=== PATIENT | female | born 1960 | race Caucasian/White ===

== ENCOUNTER 2022-01-22 00:30 | Inpatient (IN) ==
[2022-01-22] MEDS ORDERED: Lactated Ringers 1000 ml BAG 1,000 ML IV ONE ×3 (00:59→06:00)
[2022-01-22] MEDS ORDERED: Ondansetron 4 mg VIAL 2 MG/ML 2 ml VIAL IV ONE ×2 (00:59→02:11)
[2022-01-22] MEDS ORDERED: Famotidine IV 10 MG/ML 2 ml VIAL (20 mg) IV SLOW PU ONE (00:59)
[2022-01-22 01:47] LABS: Hematocrit 26 % (35-47); Hemoglobin 8.9 g/dL (12.0-16.0); Mean Corpuscular HGB Conc 35 g/dL (31-36); Mean Corpuscular Hemoglobin 36 pg (27-31); Mean Corpuscular Volume 104 fL (80-97); Red Blood Count 2.47 10^6 /uL (3.70-4.87); Red Cell Distribution Width 14 % (10-15); White Blood Count 9.4 10^3/uL (3.5-10.8)
[2022-01-22 02:01] LABS: ALT 27 U/L (7-52); AST 21 U/L (13-39); Albumin/Globulin Ratio 3.1 (1-3); Alkaline Phosphatase 36 U/L (35-149); Anion Gap 7 mmol/L (2-11); Blood Urea Nitrogen 20 mg/dL (6-24); CO2 Carbon Dioxide 25 mmol/L (22-32); Calcium 8.3 mg/dL (8.6-10.3); Chloride 107 mmol/L (101-111); Globulin 1.3 g/dL (2-4); Glucose 123 mg/dL (70-100); Lipase 24 U/L (11.0-82.0); Magnesium 1.8 mg/dL (1.9-2.7); Potassium 3.9 mmol/L (3.5-5.0); Sodium 139 mmol/L (135-145); Total Protein 5.3 g/dL (6.4-8.9); eGFR CKD-EPI 100.8 (>60)
[2022-01-22 02:42] LABS: Anisocytosis 1+; Macrocytosis 1+; Polychromasia 1+
[2022-01-22 02:43] LABS: ABS Lymphocytes 0.1 10^3/ul (1.0-4.8); ABS Monocytes 0.1 10^3/ul (0-0.8); ABS Neutrophils 9.2 10^3/ul (1.5-7.7); Eosinophil % 0.3 %; Lymphocyte % 0.5 %; Mean Platelet Volume 9.3 fL (7.4-10.4); Nucleated Red Blood Cells % 0.1; Platelet Count 58 10^3/uL (150-450)
[2022-01-22 02:59] LABS: Activated Partial Thrombo Time 24.6 seconds (26.0-38.0)
[2022-01-22] MEDS ORDERED: Iohexol 300 (CONTRAST) 10 ML SDV IV ONE (03:06)
[2022-01-22] MEDS ORDERED: Cefepime 1 GM in Dextrose 1 GM/50 ML BAG IV ONE (03:33)
[2022-01-22] MEDS ORDERED: metroNIDAZOLE IV 500 MG/100ML 500 MG/100 ML BAG IVPB ONE (03:34)
[2022-01-22] MEDS ORDERED: Metoclopramide 5 MG/ML VIAL (10 mg) IV SLOW PU ONE (04:11)
[2022-01-22 07:32] LABS: INR 0.96 (0.86-1.15)
[2022-01-22] MEDS ORDERED: Magnesium Sulfate IV 1GM/100ML 1 GM/100 ML BAG IV ONE (08:23)
[2022-01-22] MEDS ORDERED: Lactated Ringers 1000 ml BAG 1,000 ML IV SCH (09:00)
[2022-01-22 09:50] LABS: TSH Ultra Thyroid Stim Horm 1.22 mcIU/mL (0.34-5.60); Total Iron Binding Capacity 223 mcg/dL (250-450); Transferrin 159 mg/dL (203-362)
[2022-01-22 10:01] LABS: Folate 18.13 ng/mL (5.90-24.80)
[2022-01-22 10:02] LABS: Vitamin B12 547 pg/mL (180-914)
[2022-01-22] MEDS: Lactated Ringers 1000 ml BAG 1,000 ML IV SCH (11:24)
[2022-01-22] MEDS ORDERED: Albuterol HFA INHALER 8 gm MDI INH PRN (11:29)
[2022-01-22 12:43] LABS: LDH 141 U/L (140-271)
[2022-01-22 12:44] LABS: Iron < 20 ug/dL (50-212)
[2022-01-22] MEDS ORDERED: Azithromycin 500 mg/250 ml NS 500 MG/250 ML BAG IVPB SCH (13:00)
[2022-01-22] MEDS: metroNIDAZOLE IV 500 MG/100ML 500 MG/100 ML BAG IVPB SCH ×2 (14:59→19:59)
[2022-01-22 15:49] LABS: Hematocrit for Retic CNT 22 % (35-47); RBC Retic Count 2.09 10^6/uL (3.70-4.87)
[2022-01-22 15:53] LABS: Corrected Retic Count 1.2 % (0.5-1.5); Immature Retic Fraction 0.62
[2022-01-22] MEDS: Mometasone/Formoter 200/5 MDI INH SCH (19:17)
[2022-01-23] MEDS: Lactated Ringers 1000 ml BAG 1,000 ML IV SCH ×2 (01:10→05:44)
[2022-01-23 07:17] LABS: Hematocrit 18 % (35-47); Hemoglobin 6.3 g/dL (12.0-16.0); Mean Corpuscular HGB Conc 35 g/dL (31-36); Mean Corpuscular Hemoglobin 36 pg (27-31); Mean Corpuscular Volume 103 fL (80-97); Mean Platelet Volume 8.4 fL (7.4-10.4); Platelet Count 18 10^3/uL (150-450); Red Blood Count 1.75 10^6 /uL (3.70-4.87); Red Cell Distribution Width 14 % (10-15); White Blood Count 2.3 10^3/uL (3.5-10.8)
[2022-01-23 07:32] LABS: Calcium 7.4 mg/dL (8.6-10.3); Potassium 3.5 mmol/L (3.5-5.0); eGFR CKD-EPI 98.9 (>60)
[2022-01-23] MEDS: Mometasone/Formoter 200/5 MDI INH SCH ×2 (07:36→19:15)
[2022-01-23 07:39] LABS: ABS Monocytes 0.2 10^3/ul (0-0.8); ABS Neutrophils 2.1 10^3/ul (1.5-7.7); Eosinophil % 0.5 %; Lymphocyte % 1.2 %
[2022-01-23] MEDS: metroNIDAZOLE IV 500 MG/100ML 500 MG/100 ML BAG IVPB SCH ×3 (08:30→21:42)
[2022-01-23 09:00] LABS: Platelet Count 19 10^3/uL (150-450)
[2022-01-23 09:01] LABS: Hematocrit 19 % (35-47); Hemoglobin 6.5 g/dL (12.0-16.0); Mean Corpuscular HGB Conc 35 g/dL (31-36); Mean Corpuscular Hemoglobin 36 pg (27-31); Mean Corpuscular Volume 104 fL (80-97); Mean Platelet Volume 8.4 fL (7.4-10.4); Red Blood Count 1.82 10^6 /uL (3.70-4.87); Red Cell Distribution Width 14 % (10-15); White Blood Count 2.6 10^3/uL (3.5-10.8)
[2022-01-23 09:21] LABS: Urine Appearance Clear; Urine Bilirubin Negative (Negative); Urine Blood Negative (Negative); Urine Color Yellow; Urine Glucose Negative (Negative); Urine Ketones Negative (Negative); Urine Nitrite Negative (Negative); Urine Protein Negative (Negative); Urine Specific Gravity 1.005 (1.002-1.030); Urine Urobilinogen Negative (Negative)
[2022-01-23 09:27] LABS: Urine Bacteria Absent (Absent); Urine Red Blood Cell Absent (Absent); Urine Squamous Epithelial Cell Present (Absent); Urine White Blood Cell Trace(0-5/hpf) (Absent)
[2022-01-23] MEDS: Ondansetron 4 mg VIAL 2 MG/ML 2 ml VIAL IV PRN ×2 (10:47→16:14)
[2022-01-23 11:18] LABS: Fibrinogen 273.4 mg/dL (110.8-404.3)
[2022-01-23] MEDS: Fluticasone NASAL SPRAY 50MCG 16 gm SPRAY BTL INTRANASAL SCH (11:38)
[2022-01-23 16:19] LABS: Magnesium 1.7 mg/dL (1.9-2.7)
[2022-01-23 16:57] LABS: Hematocrit 18 % (35-47); Hemoglobin 6.6 g/dL (12.0-16.0); Mean Corpuscular HGB Conc 36 g/dL (31-36); Mean Corpuscular Hemoglobin 37 pg (27-31); Mean Corpuscular Volume 103 fL (80-97); Mean Platelet Volume 8.4 fL (7.4-10.4); Platelet Count 20 10^3/uL (150-450); Red Cell Distribution Width 14 % (10-15); White Blood Count 2.4 10^3/uL (3.5-10.8)
[2022-01-23] MEDS ORDERED: Magnesium Sulfate 2 gm BAG 2 GM/50 ML BAG IVPB ONE (17:03)
[2022-01-23 17:50] LABS: RBC Parasite Smear No Parasites Seen (No Parasite)
[2022-01-23] MEDS ORDERED: Potassium Chloride LIQUID 20 MEQ/15 ML LIQUID PO ONE (21:12)
[2022-01-23] MEDS ORDERED: Prochlorperazine 5 mg/ml 2 ml VIAL (10 mg) IV ONE (21:15)
[2022-01-23 21:41] LABS: C Reactive Protein 80.51 mg/L (<8.01)
[2022-01-23] MEDS ORDERED: Calcium Gluconate 2 GM in NS 0.9% 100 ml BAG 100 ML IV ONE (22:00)
[2022-01-24 00:51] LABS: ABS Neutrophils 1.6 10^3/ul (1.5-7.7); Hematocrit 18 % (35-47); Hemoglobin 6.1 g/dL (12.0-16.0); Lymphocyte % 1.5 %; Mean Corpuscular HGB Conc 35 g/dL (31-36); Mean Corpuscular Hemoglobin 36 pg (27-31); Mean Corpuscular Volume 102 fL (80-97); Mean Platelet Volume 8.8 fL (7.4-10.4); Nucleated Red Blood Cells % 0.1; Platelet Count 17 10^3/uL (150-450); Red Blood Count 1.71 10^6 /uL (3.70-4.87); Red Cell Distribution Width 14 % (10-15); White Blood Count 1.7 10^3/uL (3.5-10.8)
[2022-01-24 06:50] LABS: Calcium 8.6 mg/dL (8.6-10.3); Magnesium 2.2 mg/dL (1.9-2.7); Potassium 4.1 mmol/L (3.5-5.0); eGFR CKD-EPI 97.8 (>60)
[2022-01-24 07:03] LABS: ABS Monocytes 0.1 10^3/ul (0-0.8); ABS Neutrophils 1.9 10^3/ul (1.5-7.7); Hematocrit 21 % (35-47); Hemoglobin 7.1 g/dL (12.0-16.0); Lymphocyte % 1.5 %; Mean Corpuscular HGB Conc 35 g/dL (31-36); Mean Corpuscular Hemoglobin 36 pg (27-31); Mean Corpuscular Volume 103 fL (80-97); Mean Platelet Volume 9.6 fL (7.4-10.4); Nucleated Red Blood Cells % 0.1; Platelet Count 26 10^3/uL (150-450); Red Blood Count 2.01 10^6 /uL (3.70-4.87); Red Cell Distribution Width 14 % (10-15); White Blood Count 2.1 10^3/uL (3.5-10.8)
[2022-01-24] MEDS: Mometasone/Formoter 200/5 MDI INH SCH ×2 (07:19→19:55)
[2022-01-24 07:57] LABS: Albumin 3.3 g/dL (3.2-5.2); Albumin/Globulin Ratio 2.4 (1-3); Direct Bilirubin 0.4 mg/dL (0.03-0.18); Globulin 1.4 g/dL (2-4); Indirect Bilirubin 2.7 mg/dL (0.3-1.0); Total Bilirubin 3.1 mg/dL (0.2-1.0); Total Protein 4.7 g/dL (6.4-8.9)
[2022-01-24] MEDS ORDERED: Lidocaine 2% PF 5 ML VIAL INJ ONE (08:24)
[2022-01-24] MEDS: metroNIDAZOLE IV 500 MG/100ML 500 MG/100 ML BAG IVPB SCH ×2 (08:39→16:22)
[2022-01-24] MEDS: Fluticasone NASAL SPRAY 50MCG 16 gm SPRAY BTL INTRANASAL SCH (08:40)
[2022-01-24] MEDS: Ondansetron 4 mg VIAL 2 MG/ML 2 ml VIAL IV PRN ×3 (08:40→22:42)
[2022-01-24] MEDS: Amoxicillin/Clavul 875/125 TAB (Augmentin 875 tab) PO SCH (21:17)
[2022-01-25] MEDS: Ondansetron 4 mg VIAL 2 MG/ML 2 ml VIAL IV PRN (05:16)
[2022-01-25 06:00] LABS: ABS Lymphocytes 0.1 10^3/ul (1.0-4.8); ABS Monocytes 0.2 10^3/ul (0-0.8); ABS Neutrophils 4.1 10^3/ul (1.5-7.7); Eosinophil % 0.6 %; Hematocrit 17 % (35-47); Lymphocyte % 2.3 %; Mean Corpuscular HGB Conc 35 g/dL (31-36); Mean Corpuscular Hemoglobin 36 pg (27-31); Mean Corpuscular Volume 101 fL (80-97); Mean Platelet Volume 9.1 fL (7.4-10.4); Nucleated Red Blood Cells % 0.1; Platelet Count 63 10^3/uL (150-450); Red Blood Count 1.68 10^6 /uL (3.70-4.87); Red Cell Distribution Width 14 % (10-15); White Blood Count 4.5 10^3/uL (3.5-10.8)
[2022-01-25 06:27] LABS: Albumin/Globulin Ratio 2.5 (1-3); Calcium 8.3 mg/dL (8.6-10.3); Globulin 1.2 g/dL (2-4); Potassium 3.5 mmol/L (3.5-5.0); Total Bilirubin 2.3 mg/dL (0.2-1.0); Total Protein 4.2 g/dL (6.4-8.9); eGFR CKD-EPI 98.5 (>60)
[2022-01-25] MEDS: Mometasone/Formoter 200/5 MDI INH SCH (08:12)
[2022-01-25] MEDS: Amoxicillin/Clavul 875/125 TAB (Augmentin 875 tab) PO SCH (09:33)
[2022-01-25] MEDS: Fluticasone NASAL SPRAY 50MCG 16 gm SPRAY BTL INTRANASAL SCH (09:34)
[2022-01-25 19:57] VITALS: BP 108/48
[2022-01-26 16:14] LABS: Calprotectin 1996 mcg/g
[2022-01-27 00:37] LABS: Anaplasma phagocytophilum Negative (Negative); B. miyamotoi PCR, B Negative (Negative); Babesia divergens/MO-1 Negative (Negative); Babesia ducani Negative (Negative); Ehrlichia chaffeensis Negative (Negative); Ehrlichia ewingii/canis Negative (Negative); Ehrlichia muris eauclairensis Negative (Negative)
== END 2022-01-25 18:35 | disposition home or self-care (01) | DRG 809 ==
LOC: ED 00:30 → SUATTDRO 09:32 → EDHOLD 09:32 → MED 11:01
PROVIDERS: ADMIT Internal Medicine; ATTEND Internal Medicine